=== PATIENT | female | born 1980 | race Caucasian/White ===

== ENCOUNTER 2019-08-22 08:10 | Observation (INO) | payer BC ==
[2019-08-22] VITALS (20 sets, daily range): BP systolic 92–106; BP diastolic 61–96
[~2019-08-22] VITALS: Ht 160 cm; Wt 70.0 kg
[2019-08-22] MEDS ORDERED: normal saline 1000ml 1,000 ML IV ONE (08:18)
[2019-08-22] MEDS ORDERED: normal saline 1000ML IV soln IVB ONE (08:20)
[2019-08-22] MEDS ORDERED: morphine 4 MG/ML inj SYRINge IV ONE (08:25)
[2019-08-22] MEDS ORDERED: ondansetron/PF 4mg/2ml inj IV ONE (08:25)
[2019-08-22] MEDS ORDERED: NO HOME MEDS (08:27)
[2019-08-22] MEDS: magnesium 2GM in 50ml NS 50 ML IV SCH ×2 (08:35→09:20)
[2019-08-22] MEDS: potassium Cl 10 mEq/100mL bag IV SCH ×2 (08:47→09:53)
[2019-08-22] MEDS ORDERED: ondansetron/PF 4mg/2ml inj IV PRN ×2 (10:05→13:40)
[2019-08-22] MEDS: normal saline 1000ml 1,000 ML IV SCH ×2 (10:05→17:35)
[2019-08-22] MEDS ORDERED: magnesium hydroxide 30ml (MOM) UD suspension PO PRN (10:05)
[2019-08-22] MEDS ORDERED: morphine 2 MG/ML inj. syringe IV PRN ×2 (10:05)
[2019-08-22] MEDS ORDERED: mag hydrox/Alum hydrox/simeth 30ml oral suspension PO PRN (10:05)
[2019-08-22] MEDS ORDERED: acetaminophen 325mg tablet PO PRN (10:05)
[2019-08-22] MEDS ORDERED: BUPIVAcaine/PF 2.5mg/ml (0.25%) 10ml vial ONE (10:54)
[2019-08-22] MEDS ORDERED: ceFAZolin 1000mg inj ONE (10:54)
[2019-08-22] MEDS ORDERED: ibuprofen PO (11:14)
[2019-08-22] MEDS ORDERED: sevoflurane 250ml liquid IH ONE (12:46)
[2019-08-22 12:52] LABS: PREOP URINE HCG NEGATIVE (NEGATIVE)
[2019-08-22] MEDS ORDERED: midazolam 2 mg/2 ml injection ONE (12:52)
[2019-08-22] MEDS ORDERED: fentaNYL/PF 50MCG/1 ML 2ML syringe ONE ×2 (12:52→12:59)
[2019-08-22] MEDS ORDERED: ceFOXitin 2 GM ADDvantage bag 100 ML IV ONE (13:05)
[2019-08-22] MEDS ORDERED: LIDOcaine 2% (20mg/ml) 5ml vial ONE (13:09)
[2019-08-22] MEDS ORDERED: rocuronium 10mg/ml inj IV ONE (13:09)
[2019-08-22] MEDS ORDERED: propofol inj 20 ML IV ONE (13:09)
[2019-08-22] MEDS ORDERED: neostigmine methylsulfate 1 MG/ML 10ml vial ONE (13:10)
[2019-08-22] MEDS ORDERED: glycopyrrolate 0.2mg/ml inj ONE (13:10)
[2019-08-22] MEDS ORDERED: phenylephrine 10mg/ml inj. ONE (13:10)
[2019-08-22] MEDS ORDERED: dexamethasone sod phosphate 4mg/ml inj. ONE (13:10)
[2019-08-22] MEDS ORDERED: ondansetron/PF 4mg/2ml inj ONE (13:10)
[2019-08-22] MEDS ORDERED: morphine 4 MG/ML inj SYRINge IV PRN ×2 (13:40)
[2019-08-22] MEDS ORDERED: proCHLORperazine 10 MG/2 ml inj IV PRN (13:40)
[2019-08-22] MEDS ORDERED: ringers solution, lacted 1,000 ML IV SCH (13:40)
[2019-08-22] MEDS ORDERED: meperidine/PF 25mg/ml syringe IV PRN ×3 (13:40)
[2019-08-22] MEDS ORDERED: HYDROcodone/acetaminophen 10/325mg tab PO PRN (13:45)
[2019-08-22] MEDS ORDERED: sugammadex 200mg/2ml injection IV ONE (13:54)
[2019-08-22] MEDS ORDERED: albuterol 60 PUFF/8GM Inhaler IH ONE (13:59)
--- NOTE | 2019-08-22 14:00 | NUR ---
Received from OR via , accompanied by Anesthesiologist DR VALERIO and report given by Anesthesiolgist. AWAKENS TO VOICE. VITALS STABLE. DRESSINGS DI. DESMOND PAIN. ABD SOFT. MANCUSO WITH CLEAR URINE.
--- NOTE | 2019-08-22 15:57 | NUR ---
I have received report from IVON Lou and had the opportunity to ask questions and assume patient care.
--- NOTE | 2019-08-22 16:00 | NUR ---
Report called to receiving nurse. Transferred via bed Belongings . Special Issues communicated to receiving nurse. awake and oriented. vitals stable. dressings di.toney pain. to surgical rm 340a at this time.
--- NOTE | 2019-08-22 16:15 | NUR ---
Pt arrived to surgical floor on surgical bed. Call light within reach.
--- NOTE | 2019-08-22 18:00 | NUR ---
Patient in room [facility] 340. I have received report from Lakeisha DEL VALLE and had the opportunity to ask questions and assume patient care.
[2019-08-22] MEDS: piperacillin/tazo 3.375gm/50ml 50 ML IV SCH (19:10)
[2019-08-23] VITALS: BP 101/62
[2019-08-23] MEDS: piperacillin/tazo 3.375gm/50ml 50 ML IV SCH ×2 (01:47→08:45)
[2019-08-23 05:26] LABS: BASOPHILS % (AUTO) 0.1 % (0-1); EOSINOPHILS % (AUTO) 0 % (0-6); HEMATOCRIT 33.5 % (35.0-45.0); HEMOGLOBIN 11.5 g/dl (12.0-16.0); LYMPHOCYTES % (AUTO) 9.3 % (21-51); MEAN CORPUSCULAR HEMOGLOBIN 31.6 PG (27.0-31.0); MEAN CORPUSCULAR HGB CONC 34.3 g/dL (33.0-36.5); MEAN PLATELET VOLUME 8.5 FL (7.4-10.4); MONOCYTES # (AUTO) 0.5 X10'3 (0-0.9); MONOCYTES % (AUTO) 4.3 % (2-12); NEUTROPHILS # (AUTO) 9.1 X10'3 (1.8-7.7); NEUTROPHILS % (AUTO) 86.3 % (42-75); PLATELET COUNT 187 X10'3 (140-440); RED BLOOD COUNT 3.64 X10'6 (4.20-5.60); RED CELL DISTRIBUTION WIDTH 12.8 % (11.5-14.5); WHITE BLOOD COUNT 10.5 X10'3 (4.5-11.0)
[2019-08-23 05:51] LABS: ALBUMIN 2.8 G/DL (3.4-5.0); ANION GAP 9 (8-16); BLOOD UREA NITROGEN 7 MG/DL (7-18); BUN/CREATININE RATIO 12.5 (6.6-38.0); CALCIUM 8.2 MG/DL (8.5-10.1); CHLORIDE 111 MMOL/L (99-107); CREATININE 0.56 MG/DL (0.40-0.90); GLUCOSE 115 MG/DL (70-104); POTASSIUM 4.2 MMOL/L (3.5-5.1); SODIUM 143 MMOL/L (135-145); TOTAL CARBON DIOXIDE 22.6 MMOL/L (24-32); eGFR > 90 ML/MIN
[2019-08-23] MEDS: normal saline 1000ml 1,000 ML IV SCH (06:05)
--- NOTE | 2019-08-23 06:27 | NUR ---
Problems reprioritized. Patient report given, questions answered & plan of care reviewed with Lakeisha DEL VALLE.
--- NOTE | 2019-08-23 06:38 | NUR ---
Patient in room [facility] 340. I have received report from IVON Evans and had the opportunity to ask questions and assume patient care.
--- NOTE | 2019-08-23 06:45 | NUR ---
Patient in room [facility] 340. I have received report from IVON Evans and had the opportunity to ask questions and assume patient care.
[2019-08-23 07:05] VITALS: BP 102/56
[2019-08-23] MEDS ORDERED: ibuprofen PO (10:37)
[2019-08-23 11:00] VITALS: BP 101/65
--- NOTE | 2019-08-23 14:04 | NUR ---
Pt discharged per nursing. Discharge instructions and medications reviewed. IV DC'd, cannula intact. Pt instructed to follow up with Dr Thurman in 1 week, office number and address provided. Pt waiting for to arrive to take her home. Pt instructed to use call button when arrives. Will continue to monitor.
--- NOTE | 2019-08-23 16:30 | NUR ---
Pt and daughter arrived to [employer] for ride home. Walked out by student RN.
== END 2019-08-23 16:32 | disposition home or self-care (01) ==
LOC: ER 08:10 → SUR 3N 12:15
PROVIDERS: ADMIT Family Medicine; ATTEND Family Medicine
DX: K35.30 Acute appendicitis with localized peritonitis, without perforation or gangrene (principal); E87.6 Hypokalemia; Z98.51 Tubal ligation status
CPT/HCPCS: 36415; 44970; 80048; 81025; 82948; 85025; 86885; 86900; 86901; 87081; 96365; 96366; 96367; 96368; 96375; 99284; C9399; G0378; J0690; J0694; J1100; J2001; J2250; J2270; J2370; J2405; J2543; J2704; J2710; J3010; J3475; J3480; J3490; J7030; J7120; A4215; A4314; A4618; A6402; A7000